=== PATIENT | female | born 1935 | race Caucasian/White ===

== ENCOUNTER 2021-12-03 22:57 | Inpatient (IN) ==
--- NOTE | 2021-12-03 23:22 | Emergency Department Note ---
Impression & Plan Atrial fibrillation, new onset ADMIT ED Provider Note HPI: The patient is a 85-year-old female with history of coronary artery disease, on antiplatelet therapy, who presents the emergency department with chief complaint of a "hot flash" type episode earlier today which also included a headache. Patient states that she feels improved by the time I am assessing her here in the ED tonight. She states that she feels back to her baseline. On my initial assessment the patient is in no acute distress, she is saturating well on room air, denies any current chest pain. Patient is noted to be a poor/limited historian and has limited insight into her past health care, she is otherwise alert and oriented x3. ROS: -Neuro: Presyncopal type episode/hot flash/headache *10 point review systems was conducted and is otherwise negative unless stated above *Outpatient medications and allergy history reviewed PE: General: Alert, NAD HEENT: Normocephalic, atraumatic Eyes: Extraocular eye movement is intact, no scleral erythema Pulmonary: Clear to auscultation bilaterally, no wheezing Cardio: Tachycardic rate with a regular rhythm GI: Abdomen is soft, nontender : No suprapubic tenderness MSK: No evidence of trauma or malformation of the extremities, no edema Skin: No evidence of rash Neuro: Alert, no focal deficits Psychiatric: Cooperative threat monitoring analyst: - An order was placed for continuous cardiac monitoring - Patient was noted to be in irregular rhythm with rate of 110 CT HEAD: Mild central atrophy and periventricular white matter low density consistent with chronic small vessel disease and/or senescent changes. There is no evidence of acute large vessel infarct or intracranial hemorrhage. The paranasal sinuses and mastoid air cells are normal. No skull fracture or scalp hematoma is seen. Radiologist: Abebe Ohara MD CTA CHEST: The pulmonary arterial tree is well-opacified with contrast. No pulmonary embolism is identified. The thoracic aorta is mildly calcified but nondilated. The aorta is not yet well opacified with contrast. Mild cardiomegaly and severe coronary calcification. No pericardial effusion is seen. Mild emphysematous changes in the lungs. There is diffuse intra-or lobular septal thickening suggesting mild CHF with trace bilateral pleural effusions. Mild to severe multilevel degenerative changes are seen in the thoracic spine, greatest inferiorly. No acute fracture or canal compromise is seen. Limited images of the upper abdomen appear unremarkable. Radiologist: Abebe Ohara MD EKG: Rate: 106 Rhythm: Atrial fibrillation with RVR Intervals: Within normal limits ST changes: No ST elevation Time: 2346 Medical Decision Making: Patient presented to the emergency department with a chief complaint of an episode earlier today where she had a headache, states she also had a hot flash and felt some dizziness. On arrival here to the ED she states that she feels well, she does not have any focal deficits. CT imaging of the head was obtained that shows no evidence of any acute intracranial process, CT angiography of the chest was obtained given elevated D-dimer level, this does not show any evidence of pulmonary embolism. Troponin is negative x1, patient otherwise appears well on my reassessment. She is noted to have atrial fibrillation with RVR in the 120s throughout her stay here in the ED, she was given some IV fluids and this did improve into the 90s. She tells me she does not have a history of atrial fibrillation that she knows of. I did discuss the case with her son as well who tells me that she does not have any history of atrial fibrillation. She is on antiplatelet medication, she is not on any anticoagulation. Patient overall appears well however given new onset atrial fibrillation with her episode earlier today I do think it would be appropriate to admit her to a telemetry bed for further management and likely echocardiogram and discussion about an anticoagulation strategy, if necessary. Patient is in agreement. Son is in agreement for admission as well who I spoke with on the phone. Patient was admitted in stable condition following my discussion with the on-call hospitalist for [facility], Dr. Saxena. Diagnosis: 1. New onset atrial fibrillation 2. Presyncopal episode 3. Headache Disposition: Admission Fadi Colon DO Emergency Medicine Past Med/Surg History Social History Smoking Status: Never smoker Allergies Allergies Allergy/AdvReac Type Severity Reaction Status Date / Time tolterodine Allergy Unknown Unknown Verified 12/04/21 00:16 doxazosin AdvReac Intermediate NUMB Verified 12/04/21 00:16 FEELING ropinirole AdvReac Intermediate FELT WEIRD Verified 12/04/21 00:16 Home Meds Home Medications Medication Instructions Recorded Confirmed aspirin 81 mg tablet,delayed 81 mg PO DAILY 12/04/21 12/04/21 release atorvastatin 40 mg tablet 40 mg PO DAILY 12/04/21 12/04/21 calcium carbonate 500 mg-vitamin 1 tab PO DAILY 12/04/21 12/04/21 D3 5 mcg (200 unit) tablet (Os-Aaron 500 + D3) carvedilol 6.25 mg tablet 6.25 mg PO BID 12/04/21 12/04/21 clopidogrel 75 mg tablet (Plavix) 75 mg PO DAILY 12/04/21 12/04/21 fluocinonide 0.05 % topical 1 applic TOPICAL HS PRN 12/04/21 12/04/21 solution latanoprost 0.005 % eye drops 1 drp OPHTHALMIC (EYE) PM 12/04/21 12/04/21 levothyroxine 25 mcg tablet 25 mcg PO DAILYBB 12/04/21 12/04/21 linagliptin 5 mg tablet (Tradjenta) 5 mg PO DAILY 12/04/21 12/04/21 magnesium chloride 64 mg 128 mg PO DAILY 12/04/21 12/04/21 (magnesium chloride) tablet,delayed release metformin 1,000 mg tablet 1,000 mg PO BIDM 12/04/21 12/04/21 mometasone 0.1 % topical cream 1 applic TOPICAL DAILY PRN 12/04/21 12/04/21 [id number] acid 0.4 1 tab PO DAILY 12/04/21 12/04/21 mg-lycopene 300 mcg-lutein 250 mcg tablet (Centrum Silver) nitroglycerin 0.4 mg sublingual 0.4 mg SUBLINGUAL DIRECTED PRN 12/04/21 12/04/21 tablet (Nitrostat) pantoprazole 40 mg tablet,delayed 40 mg PO DAILYBB 12/04/21 12/04/21 release polyethylene glycol 3350 17 17 g PO DAILY PRN 12/04/21 12/04/21 gram/dose oral powder (Miralax) sacubitril 24 mg-valsartan 26 mg 1 tab PO AMHS 12/04/21 12/04/21 tablet (Entresto) vitamins A,C,R-xlal-gzqcfl 7,160 1 tab PO DAILY 12/04/21 12/04/21 unit-113 mg-100 unit tablet (PreserVision AREDS) Results & Data (ED) Vital Signs Vital Signs - 24 hr 12/03/21 23:13 12/03/21 23:30 12/04/21 00:00 Temperature 36.8 C Temperature Source Oral Pulse Rate 92 H 126 H 100 H Pulse Rate from SpO2 Sensor Respiratory Rate 21 20 22 Blood Pressure 183/123 H 157/101 H 134/116 H Blood Pressure Mean 143 119 122 Pulse Oximetry 95 94 93 Oxygen Delivery Method Room Air Room Air Room Air Sepsis Recent Fever Within 48 Hours No Sepsis New/Unexplained Change in Mental Status N/A Sepsis Action Taken by Nursing No Action Required 12/04/21 00:30 12/04/21 01:00 12/04/21 01:30 Temperature Temperature Source Pulse Rate 118 H 98 H 107 H Pulse Rate from SpO2 Sensor Respiratory Rate 18 20 18 Blood Pressure 155/94 H 125/100 122/81 Blood Pressure Mean 114 108 94 Pulse Oximetry 93 92 91 Oxygen Delivery Method Room Air Room Air Room Air Sepsis Recent Fever Within 48 Hours Sepsis New/Unexplained Change in Mental Status Sepsis Action Taken by Nursing 12/04/21 01:58 12/04/21 02:00 12/04/21 02:30 Temperature Temperature Source Pulse Rate 113 H 102 H 98 H Pulse Rate from SpO2 Sensor Respiratory Rate 21 16 17 Blood Pressure 119/98 149/95 H 131/96 Blood Pressure Mean 105 113 107 Pulse Oximetry 96 93 92 Oxygen Delivery Method Room Air Room Air Room Air Sepsis Recent Fever Within 48 Hours Sepsis New/Unexplained Change in Mental Status Sepsis Action Taken by Nursing 12/04/21 03:00 12/04/21 03:30 12/04/21 04:00 Temperature Temperature Source Pulse Rate 97 H 94 H 97 H Pulse Rate from SpO2 Sensor Respiratory Rate 17 17 25 H Blood Pressure 112/96 112/77 142/84 H Blood Pressure Mean 101 88 103 Pulse Oximetry 92 93 92 Oxygen Delivery Method Room Air Room Air Room Air Sepsis Recent Fever Within 48 Hours Sepsis New/Unexplained Change in Mental Status Sepsis Action Taken by Nursing 12/04/21 04:30 12/04/21 05:00 Temperature Temperature Source Pulse Rate 92 H 103 H Pulse Rate from SpO2 Sensor 102 H Respiratory Rate 18 16 Blood Pressure 123/75 155/125 H Blood Pressure Mean 91 135 Pulse Oximetry 94 94 Oxygen Delivery Method Room Air Room Air Sepsis Recent Fever Within 48 Hours Sepsis New/Unexplained Change in Mental Status Sepsis Action Taken by Nursing Laboratory Data Result diagrams: 12/03/21 23:00 12/03/21 23:00 Lab Results 12/03/21 12/03/2112/03/22 Range/Units 23:00 23:00 23:00 WBC 5.76 (4.8-10.8) K/uL RBC 4.55 (4.2-5.4) M/uL Hgb 13.4 (12.0-16.0) g/dL Hct 39.1 (37-47) % MCV 85.9 (80-100) fL MCH 29.5 (25-34) pg MCHC 34.3 (32-36) g/dL RDW Std Deviation 41.6 (36.4-46.3) fL RDW Coeff of Isaak 13.3 (11.5-14.5) % Plt Count 296 (130-400) K/uL MPV 9.8 (7.4-10.4) fL Immature Gran % (Auto) 0.0 % Neut % (Auto) 53.8 % Lymph % (Auto) 35.2 % Camp % (Auto) 7.6 % Eos % (Auto) 3.1 % Baso % (Auto) 0.3 % Neut # (Auto) 3.09 (1.4-6.5) K/uL Lymph # (Auto) 2.03 (1.2-3.4) K/uL Camp # (Auto) 0.44 (0.11-0.59) K/uL Eos # (Auto) 0.18 (0-0.5) K/uL Baso # (Auto) 0.02 (0-0.2) K/uL Immature Gran # (Auto) 0.00 (0.00-0.02) K/uL PT 10.9 (9.0-12.0) Seconds INR 1.1 (0.9-1.1) APTT 25.3 (21.0-31.0) Seconds PTT Ratio 1.0 D-Dimer 1060 H* (0-500) ug/L FEU Sodium 130 L (136-145) mmol/L Potassium 4.2 (3.5-5.1) mmol/L Chloride 95 L (98-107) mmol/L Carbon Dioxide 22 (21-32) mmol/L Anion Gap 13 H (3-11) BUN 12 (6-23) mg/dl Creatinine 0.48 L (0.6-1.2) mg/dl Est Cr Clr Drug Dosing 72.3 ml/min Est GFR ( Amer) 102.2 ml/min Est GFR (Non-Af Amer) 88.2 ml/min BUN/Creatinine Ratio 25.0 H (10-20) Glucose 100 H (70-99(Fasting)) mg/dl Calcium 10.3 H (8.5-10.1) mg/dl Total Bilirubin 0.7 (0.2-1.0) mg/dl AST 25 (13-39) U/L ALT 27 (7-52) U/L Alkaline Phosphatase 73 (34-104) U/L Troponin I < 0.03 (0-0.04) ng/ml Total Protein 7.9 (6.0-8.3) gm/dl Albumin 5.0 (3.4-5.0) gm/dl Globulin 2.9 (2.5-4.0) gm/dl Albumin/Globulin Ratio 1.7 (0.9-2) Lipase 72 (11-82) U/L SARS-CoV-2, RNA, NAAT (NEGATIVE) 12/04/21 Range/Units 04:48 WBC (4.8-10.8) K/uL RBC (4.2-5.4) M/uL Hgb (12.0-16.0) g/dL Hct (37-47) % MCV (80-100) fL MCH (25-34) pg MCHC (32-36) g/dL RDW Std Deviation (36.4-46.3) fL RDW Coeff of Isaak (11.5-14.5) % Plt Count (130-400) K/uL MPV (7.4-10.4) fL Immature Gran % (Auto) % Neut % (Auto) % Lymph % (Auto) % Camp % (Auto) % Eos % (Auto) % Baso % (Auto) % Neut # (Auto) (1.4-6.5) K/uL Lymph # (Auto) (1.2-3.4) K/uL Camp # (Auto) (0.11-0.59) K/uL Eos # (Auto) (0-0.5) K/uL Baso # (Auto) (0-0.2) K/uL Immature Gran # (Auto) (0.00-0.02) K/uL PT (9.0-12.0) Seconds INR (0.9-1.1) APTT (21.0-31.0) Seconds PTT Ratio D-Dimer (0-500) ug/L FEU Sodium (136-145) mmol/L Potassium (3.5-5.1) mmol/L Chloride (98-107) mmol/L Carbon Dioxide (21-32) mmol/L Anion Gap (3-11) BUN (6-23) mg/dl Creatinine (0.6-1.2) mg/dl Est Cr Clr Drug Dosing ml/min Est GFR ( Amer) ml/min Est GFR (Non-Af Amer) ml/min BUN/Creatinine Ratio (10-20) Glucose (70-99(Fasting)) mg/dl Calcium (8.5-10.1) mg/dl Total Bilirubin (0.2-1.0) mg/dl AST (13-39) U/L ALT (7-52) U/L Alkaline Phosphatase (34-104) U/L Troponin I (0-0.04) ng/ml Total Protein (6.0-8.3) gm/dl Albumin (3.4-5.0) gm/dl Globulin (2.5-4.0) gm/dl Albumin/Globulin Ratio (0.9-2) Lipase (11-82) U/L SARS-CoV-2, RNA, NAAT NEGATIVE (NEGATIVE) Administered Medications Discontinued Medications Ioversol (Optiray 320 125ml) 120 ml IV ONCE ONE Stop: 12/04/21 01:54 Last Admin: 12/04/21 01:53 Dose: 120 ml Documented by: [id number] Discharge Plan Visit Data Chief Complaint: Cardiac Assessment Stated Complaint: headache and HTN ED Provider: Fadi Colon Discharge Problem: Atrial fibrillation, new onset Patient Disposition: Admitted As Inpatient Condition: Good
[2021-12-03 23:34] LABS: Basophils # (auto) 0.02 K/uL (0-0.2); Basophils % (auto) 0.3 %; Eosinophils # (auto) 0.18 K/uL (0-0.5); Eosinophils % (auto) 3.1 %; Hematocrit (blood only) 39.1 % (37-47); Hemoglobin 13.4 g/dL (12.0-16.0); Lymphocytes # (auto) 2.03 K/uL (1.2-3.4); Lymphocytes % (auto) 35.2 %; Mean Corpuscular Hemoglobin 29.5 pg (25-34); Mean Corpuscular Hgb Conc 34.3 g/dL (32-36); Mean Corpuscular Volume 85.9 fL (80-100); Mean Platelet Volume 9.8 fL (7.4-10.4); Monocytes # (auto) 0.44 K/uL (0.11-0.59); Monocytes % (auto) 7.6 %; Neutrophils # (auto) 3.09 K/uL (1.4-6.5); Neutrophils % (auto) 53.8 %; Platelet Count 296 K/uL (130-400); RDW Coefficient of Variation 13.3 % (11.5-14.5); RDW Standard Deviation 41.6 fL (36.4-46.3); Red Blood Count 4.55 M/uL (4.2-5.4); White Blood Count 5.76 K/uL (4.8-10.8)
[2021-12-03 23:59] LABS: Troponin I < 0.03 ng/ml (0-0.04)
[2021-12-04 00:03] LABS: Alanine Aminotransferase 27 U/L (7-52); Albumin Globulin Ratio 1.7 (0.9-2); Alkaline Phosphatase 73 U/L (34-104); Anion Gap 13 (3-11); Aspartate Aminotransferase 25 U/L (13-39); Bilirubin,Total 0.7 mg/dl (0.2-1.0); Blood Urea Nitrogen 12 mg/dl (6-23); Calcium 10.3 mg/dl (8.5-10.1); Carbon Dioxide 22 mmol/L (21-32); Chloride 95 mmol/L (98-107); Creatinine Clr Calc Pharmacy 72.3 ml/min; Est GFR (African American) 102.2 ml/min; Est GFR (Non-African American) 88.2 ml/min; Globulin 2.9 gm/dl (2.5-4.0); Glucose 100 mg/dl (70-99(Fasting)); Lipase 72 U/L (11-82); Potassium 4.2 mmol/L (3.5-5.1); Sodium 130 mmol/L (136-145); Total Protein 7.9 gm/dl (6.0-8.3)
[2021-12-04 00:45] LABS: INR 1.1 (0.9-1.1); Partial Thromboplastin Time 25.3 Seconds (21.0-31.0); Prothrombin Time 10.9 Seconds (9.0-12.0)
[2021-12-04 00:49] LABS: D Dimer 1060 ug/L FEU (0-500)
[2021-12-04] MEDS ORDERED: OPTIRAY 320 125ml IV ONE (01:53)
[2021-12-04] MEDS ORDERED: Heparin IV Adult Wt-Based Low-Dose *NO* Bolus Protocol IV ONE (06:18)
[2021-12-04] MEDS ORDERED: ONDANSETRON INJ 2 MG/ML 2 ML VIAL IV PRN (06:18)
[2021-12-04] MEDS ORDERED: SODIUM CHLORIDE 0.9% 1000ML 1,000 ML IV SCH (06:18)
[2021-12-04] MEDS ORDERED: METOPROLOL TARTRATE 1 MG/ML VIAL IV PRN (06:18)
[2021-12-04] MEDS ORDERED: POLYETHYLENE (MIRALAX) 17 GM PACK PO PRN ×2 (06:18)
[2021-12-04] MEDS ORDERED: MOMETASONE FUROATE 0.1% CR 15 GM TUBE EXT PRN (06:18)
[2021-12-04] MEDS ORDERED: NON-FORMULARY MEDICATION (Fluocinonide 0.05 % Solution) TOP PRN (06:18)
[2021-12-04] MEDS ORDERED: NITROGLYCERIN SL 0.4 MG/TAB TAB SL PRN ×2 (06:18)
[2021-12-04] MEDS ORDERED: DEXTROSE 50% 50 ML SYRINGE IV PRN (06:30)
[2021-12-04] MEDS ORDERED: GLUCAGON FOR INJ 1 MG VIAL IM PRN (06:30)
[2021-12-04] MEDS ORDERED: GLUCOSE 40% GEL 15 GM TUBE PO PRN (06:30)
[2021-12-04] MEDS ORDERED: CARBOHYDRATES FOR HYPOGLYCEMIA PO PRN (06:30)
[2021-12-04] MEDS ORDERED: GLUCOSE 10 TABS/TUBE PO PRN (06:30)
--- NOTE | 2021-12-04 06:56 | CT Scan Report ---
CT OF THE HEAD WITHOUT CONTRAST CLINICAL HISTORY: Headache. COMPARISON STUDY: No previous studies for comparison. CT DOSE: 537.48 mGy.cm TECHNIQUE: Helical axial images of the head were obtained without IV contrast. Automated exposure con trol was utilized for the study. A dose lowering technique was utilized adhering to the principles o f ALARA. FINDINGS: No acute intracranial hemorrhage, midline shift or mass effect is present. White matter hyp odensity suggests small vessel disease. The ventricular system is unremarkable. The basal cisterns ar e patent. No extra-axial collections are present. There are no findings to suggest acute dural sinus thrombosis or acute territorial infarct. No significant calvarial abnormalities are present. Visualiz ed portions of the sinuses and mastoid air cells are clear. IMPRESSION: No acute intracranial findings. ACT 112: Negative or not required by law. Electronically signed by: Stephen Reece M.D. 12/04/2021 6:54 AM
--- NOTE | 2021-12-04 07:21 | CT Scan Report ---
CT ANGIOGRAPHY OF THE CHEST, PULMONARY EMBOLUS PROTOCOL CLINICAL HISTORY: Shortness of breath. Tachycardia. Evaluate for pulmonary embolus. COMPARISON STUDY: Chest radiograph December 03, 2021. TECHNIQUE: Following IV administration of 120 mL of Optiray, helical axial images of the chest were o btained utilizing the pulmonary embolus protocol. Maximal intensity projections and sagittal and cor onal reformats were viewed on an independent 3D workstation. IV contrast was administered without co mplication. Automated exposure control was utilized for the study. A dose lowering technique was ut ilized adhering to the principles of ALARA. CT DOSE: 225.75 mGy.cm FINDINGS: No pulmonary emboli are identified. Mild cardiomegaly is noted. There is no pericardial ef fusion. Moderate coronary artery calcification is present. Stimulator device within the lower back is partially imaged. There are trace bilateral pleural effusions. No pneumothorax is present. There is no consolidation to suggest pneumonia. Interlobular septal thickening is noted. No thoracic lymphaden opathy is present. No acute fracture or suspicious lesion is identified within visualized bony thorax . There is moderate plaque of the thoracic aorta. IMPRESSION: 1. No pulmonary emboli identified. 2. Mild cardiomegaly. Findings consistent with interstitial pulmonary edema with trace bilateral pleu ral effusions. ACT 112: Negative or not required by law. Electronically signed by: Stephen Reece M.D. 12/04/2021 7:20 AM
--- NOTE | 2021-12-04 07:50 | XRay Report ---
XR chest 1V portable CLINICAL HISTORY: weak COMPARISON STUDY: No previous studies for comparison. FINDINGS: Lung volumes are normal. There is no pneumothorax or pleural effusion. Postoperative findin gs within the lumbar spine are partially imaged. Electronic device projects over the mid to lower danial k. There is mild interstitial thickening. Trace bilateral pleural effusions are present. There is no pneumothorax. There is mild cardiomegaly. No consolidation is identified. IMPRESSION: Findings suggestive of mild interstitial pulmonary edema with trace bilateral pleural ef fusions. ACT 112: Negative or not required by law. Electronically signed by: Stephen Reece M.D. 12/04/2021 7:49 AM
[2021-12-04] MEDS: PANTOprazole 40 MG TAB PO SCH (08:14)
--- NOTE | 2021-12-04 08:15 | Cardiology Consultation ---
Date of Consultation December 04, 2021 Assessment & Plan (1) Atrial fibrillation, new onset: Newly Dx afib with RVR- patient asymptomatic. HRs in the 100s. Due to lack of symptoms will attempt medical management/rate control at this time. Further recommendations pending echo results. 1. Stop Coreg 6.25 mg BID 2. Start Metoprolol tartrate 50 mg BID 3. For now- okay to continue heparin infusion. Use of chronic anticoagulation will be determined after further assessment. Patient may be a poor candidate due to age and fall risk. 4. Okay for patient to eat- diet order placed. 5. Echo ordered to reassess LVEF and valvular status. (2) Hypertension: Goal blood pressures of 150/90. Continue to trend blood pressures closely- should BP start to trend consistently above goal can consider titration of antihypertensives at that time. 1. Remain on Entresto 26/24 mg (3) CAD (coronary artery disease): (4) Ischemic cardiomyopathy: (5) HFrEF (heart failure with reduced ejection fraction): Ho anterior wall myocardial infarction and received a drug eluting stent within the LAD at [facility], 01/2020 H/o Ischemic cardiomyopathy, HFrEF, NYHA class 3. Stable- no angina. Euvolemic on exam. 1. Patient on Aspirin 81 mg daily Supervising Physician Co-Signing Physician Notes I have seen and examined the patient. I reviewed the medical record and discussed the case with Ms. oD. I agree with the plan as outlined above. History of Present Illness Reason for Consultation: New onset atrial fibrillation, presyncope [facility] Attending Physician: Alonzo Francis MD History of Present Illness 85 year old female who normally follows with Dr. Monk as an out patient. She presented to ED due to "hot flash" episodes/ presyncope at home. Patient found to be in atrial fib with RVR in the 110-120s. This is a new diagnosis for her. She has never been on anticoagulation, only on Aspirin 81 mg daily. She was given IVF with improvement in her rates. CT imaging of the head was obtained that shows no evidence of any acute intracranial process, CT angiography of the chest was obtained given elevated D-dimer level, this does not show any evidence of pulmonary embolism. Troponin is negative x1. Upon entrance into the room patient was resting comfortably in bed. Asymptomatic with her atrial fibrillation. No chest pain or shortness of breath. No palpitations, dizziness or syncope. Notes that she lives at home alone and independently. Unfortunately she has been much more unsteady on her feet. She did have a fall in September, but did not get hurt. She notes that she needs her rollator to walk. Tele: Afib 90s, she is currently on a heparin gtt. PMH: Hypertensive heart disease CAD, h/o anterior wall myocardial infarction and received a drug eluting stent within the LAD at [facility], 01/2020 H/o Ischemic cardiomyopathy, HFrEF, NYHA class 3 Palpitations DM Allergies Allergy/AdvReac Type Severity Reaction Status Date / Time oxybutynin Allergy Unknown SEVERE Unverified 12/04/21 07:15 ACID REFLUX tolterodine Allergy Unknown Unknown Verified 12/04/21 07:15 doxazosin AdvReac Intermediate NUMB Verified 12/04/21 07:15 FEELING ropinirole AdvReac Intermediate FELT WEIRD Verified 12/04/21 07:15 ANTICHOLINERGIC Allergy Unknown SEVERE Uncoded 12/04/21 07:15 ACID REFLUX Home Medications Medication Instructions Recorded Confirmed Type aspirin 81 mg tablet,delayed 81 mg PO DAILY 12/04/21 12/04/21 History release atorvastatin 40 mg tablet 40 mg PO DAILY 12/04/21 12/04/21 History calcium carbonate 500 mg-vitamin 1 tab PO DAILY 12/04/21 12/04/21 History D3 5 mcg (200 unit) tablet (Os-Aaron 500 + D3) carvedilol 6.25 mg tablet 6.25 mg PO BID 12/04/21 12/04/21 History clopidogrel 75 mg tablet (Plavix) 75 mg PO DAILY 12/04/21 12/04/21 History fluocinonide 0.05 % topical 1 applic TOPICAL HS PRN 12/04/21 12/04/21 History solution latanoprost 0.005 % eye drops 1 drp OPHTHALMIC (EYE) PM 12/04/21 12/04/21 History levothyroxine 25 mcg tablet 25 mcg PO DAILYBB 12/04/21 12/04/21 History linagliptin 5 mg tablet (Tradjenta) 5 mg PO DAILY 12/04/21 12/04/21 History magnesium chloride 64 mg 128 mg PO DAILY 12/04/21 12/04/21 History (magnesium chloride) tablet,delayed release metformin 1,000 mg tablet 1,000 mg PO BIDM 12/04/21 12/04/21 History mometasone 0.1 % topical cream 1 applic TOPICAL DAILY PRN 12/04/21 12/04/21 History aqzuqhzs-sem-frvfx acid 0.4 1 tab PO DAILY 12/04/21 12/04/21 History mg-lycopene 300 mcg-lutein 250 mcg tablet (Centrum Silver) nitroglycerin 0.4 mg sublingual 0.4 mg SUBLINGUAL DIRECTED PRN 12/04/21 12/04/21 History tablet (Nitrostat) pantoprazole 40 mg tablet,delayed 40 mg PO DAILYBB 12/04/21 12/04/21 History release polyethylene glycol 3350 17 17 g PO DAILY PRN 12/04/21 12/04/21 History gram/dose oral powder (Miralax) sacubitril 24 mg-valsartan 26 mg 1 tab PO AMHS 12/04/21 12/04/21 History tablet (Entresto) vitamins A,C,Q-ouzg-qvgjgy 7,160 1 tab PO DAILY 12/04/21 12/04/21 History unit-113 mg-100 unit tablet (PreserVision AREDS) Patient History Social History Smoking Status: Never smoker Second Hand Exposure: No; Do You Dip or Chew Tobacco: No; Tobacco Cessation Education Requested by Patient: No Hx Alcohol Use: No Hx Substance Use: No Preferred Language: Arabic Communication Ability: Effective [employer] Required: No Beliefs That Will Affect Care: None marital status: / Current Living Situation: Alone Other Information That Helps Us Care for You: No Feels Safe at Home: Yes Safety Concerns: Feels Safe At This Time Assistive Devices: Walker Review of Systems Review of Systems: All systems reviewed & are unremarkable except as noted in HPI & below Physical Exam Physical Exam: General: no acute distress and stated age Head: normocephalic, no masses, lesions, tenderness or abnormalities Eyes: conjunctiva are pink and non-injected, sclera clear Neck: supple, no adenopathy, no bruits, normal jugular venous pulse, no hepatojugular reflux Chest: normal shape and normal respiratory effort Lungs: clear to auscultation and percussion Cardiac Exam: Irregular rhythm, no murmurs gallops or rubs - normal S1, normal S2 Pulses: 2(+) throughout Abdomen: abdomen soft, non-tender, no abnormal masses and no hepatosplenomegaly Musculoskeletal: no gait disturbance, no joint inflammation, no deforming arthritis Extremities: no edema and no cyanosis Neuro: grossly normal exam Results & Data ([facility]) Vital Signs (Past 12 Hours) Vital Signs Temp Pulse Resp BP Pulse Ox 12/04/21 07:15 36.5 C 101 H 18 134/92 94 12/04/21 06:00 76 18 148/71 H 93 12/04/21 05:31 77 17 138/87 94 12/04/21 05:00 103 H 16 155/125 H 94 12/04/21 04:30 92 H 18 123/75 94 12/04/21 04:00 97 H 25 H 142/84 H 92 12/04/21 03:30 94 H 17 112/77 93 12/04/21 03:00 97 H 17 112/96 92 12/04/21 02:30 98 H 17 131/96 92 12/04/21 02:00 102 H 16 149/95 H 93 12/04/21 01:58 113 H 21 119/98 96 12/04/21 01:30 107 H 18 122/81 91 12/04/21 01:00 98 H 20 125/100 92 12/04/21 00:30 118 H 18 155/94 H 93 12/04/21 00:00 100 H 22 134/116 H 93 12/03/21 23:30 126 H 20 157/101 H 94 12/03/21 23:13 36.8 C 92 H 21 183/123 H 95 Laboratory Results 12/04/21 12/04/21 12/04/21 Range/Units 08:36 07:07 04:48 WBC (4.8-10.8) K/uL RBC (4.2-5.4) M/uL Hgb (12.0-16.0) g/dL Hct (37-47) % MCV (80-100) fL MCH (25-34) pg MCHC (32-36) g/dL RDW Std Deviation (36.4-46.3) fL RDW Coeff of Isaak (11.5-14.5) % Plt Count (130-400) K/uL MPV (7.4-10.4) fL Immature Gran % (Auto) % Neut % (Auto) % Lymph % (Auto) % Dickenson % (Auto) % Eos % (Auto) % Baso % (Auto) % Neut # (Auto) (1.4-6.5) K/uL Lymph # (Auto) (1.2-3.4) K/uL Dickenson # (Auto) (0.11-0.59) K/uL Eos # (Auto) (0-0.5) K/uL Baso # (Auto) (0-0.2) K/uL Immature Gran # (Auto) (0.00-0.02) K/uL PT (9.0-12.0) Seconds INR (0.9-1.1) APTT (21.0-31.0) Seconds PTT Ratio D-Dimer (0-500) ug/L FEU Sodium (136-145) mmol/L Potassium (3.5-5.1) mmol/L Chloride (98-107) mmol/L Carbon Dioxide (21-32) mmol/L Anion Gap (3-11) BUN (6-23) mg/dl Creatinine (0.6-1.2) mg/dl Est Cr Clr Drug Dosing ml/min Est GFR ( Amer) ml/min Est GFR (Non-Af Amer) ml/min BUN/Creatinine Ratio (10-20) Glucose (70-99(Fasting)) mg/dl POC Glucose 118 H (70-99) mg/dl Calcium (8.5-10.1) mg/dl Total Bilirubin (0.2-1.0) mg/dl AST (13-39) U/L ALT (7-52) U/L Alkaline Phosphatase (34-104) U/L Troponin I < 0.03 (0-0.04) ng/ml Total Protein (6.0-8.3) gm/dl Albumin (3.4-5.0) gm/dl Globulin (2.5-4.0) gm/dl Albumin/Globulin Ratio (0.9-2) Lipase (11-82) U/L SARS-CoV-2, RNA, NAAT NEGATIVE (NEGATIVE) 12/03/21 12/03/21 12/03/21 Range/Units 23:00 23:00 23:00 WBC 5.76 (4.8-10.8) K/uL RBC 4.55 (4.2-5.4) M/uL Hgb 13.4 (12.0-16.0) g/dL Hct 39.1 (37-47) % MCV 85.9 (80-100) fL MCH 29.5 (25-34) pg MCHC 34.3 (32-36) g/dL RDW Std Deviation 41.6 (36.4-46.3) fL RDW Coeff of Isaak 13.3 (11.5-14.5) % Plt Count 296 (130-400) K/uL MPV 9.8 (7.4-10.4) fL Immature Gran % (Auto) 0.0 % Neut % (Auto) 53.8 % Lymph % (Auto) 35.2 % Dickenson % (Auto) 7.6 % Eos % (Auto) 3.1 % Baso % (Auto) 0.3 % Neut # (Auto) 3.09 (1.4-6.5) K/uL Lymph # (Auto) 2.03 (1.2-3.4) K/uL Dickenson # (Auto) 0.44 (0.11-0.59) K/uL Eos # (Auto) 0.18 (0-0.5) K/uL Baso # (Auto) 0.02 (0-0.2) K/uL Immature Gran # (Auto) 0.00 (0.00-0.02) K/uL PT 10.9 (9.0-12.0) Seconds INR 1.1 (0.9-1.1) APTT 25.3 (21.0-31.0) Seconds PTT Ratio 1.0 D-Dimer 1060 H* (0-500) ug/L FEU Sodium 130 L (136-145) mmol/L Potassium 4.2 (3.5-5.1) mmol/L Chloride 95 L (98-107) mmol/L Carbon Dioxide 22 (21-32) mmol/L Anion Gap 13 H (3-11) BUN 12 (6-23) mg/dl Creatinine 0.48 L (0.6-1.2) mg/dl Est Cr Clr Drug Dosing 72.3 ml/min Est GFR ( Amer) 102.2 ml/min Est GFR (Non-Af Amer) 88.2 ml/min BUN/Creatinine Ratio 25.0 H (10-20) Glucose 100 H (70-99(Fasting)) mg/dl POC Glucose (70-99) mg/dl Calcium 10.3 H (8.5-10.1) mg/dl Total Bilirubin 0.7 (0.2-1.0) mg/dl AST 25 (13-39) U/L ALT 27 (7-52) U/L Alkaline Phosphatase 73 (34-104) U/L Troponin I < 0.03 (0-0.04) ng/ml Total Protein 7.9 (6.0-8.3) gm/dl Albumin 5.0 (3.4-5.0) gm/dl Globulin 2.9 (2.5-4.0) gm/dl Albumin/Globulin Ratio 1.7 (0.9-2) Lipase 72 (11-82) U/L SARS-CoV-2, RNA, NAAT (NEGATIVE) Diagnostic Findings Echo 06/2020 outpatient The primary indication after review was deemed appropriate and the examination was performed. The examination is adequate to evaluate the referral indication. The left ventricular cavity size is normal. The basal septum is thickened and angulated consistent with sigmoid septum. The LV wall thickness is normal. The left ventricular wall motion is normal. Calculated LV ejection Fraction = 59% (bi-plane method of discs). The left ventricular diastolic function is normal. The left atrium is mildly enlarged (35-41 ml/m^2). Mild mitral regurgitation is present. The estimated pulmonary artery systolic pressure is 25-30mm Hg. Echo at [facility] 01/2020 LVEF 15-20%- post NE
[2021-12-04] MEDS: LEVOTHYROXINE SODIUM 25 MCG TABLET PO SCH (08:26)
[2021-12-04] MEDS: INSULIN ASPART PER UNIT SC SCH ×4 (08:53→23:59)
[2021-12-04] MEDS ORDERED: carvediloL 6.25 MG TAB PO SCH (09:00)
[2021-12-04] MEDS: ATORVASTATIN 40 MG TAB PO SCH (09:00)
[2021-12-04] MEDS: ASPIRIN 81 MG ECTAB PO SCH (09:00)
[2021-12-04] MEDS ORDERED: NON-FORMULARY MEDICATION (Vitamins A,C,E-Zinc-Copper [Preservision Areds] 7,160 unit- 113 PO SCH (09:00)
[2021-12-04] MEDS: HEPARIN SODIUM/DEXTROSE 25,000 UNITS/500 ML BAG IV SCH (09:01)
[2021-12-04] MEDS: CLOPIDOGREL BISULFATE 75 MG TAB PO SCH (09:01)
[2021-12-04] MEDS: VALSARTAN/SACUBITRIL 26/24MG TAB PO SCH ×2 (09:01→21:12)
[2021-12-04] MEDS: CALCIUM 600MG + VIT D 400 IU TAB PO SCH (09:01)
[2021-12-04] MEDS: MAGNESIUM CHLORIDE 64MG DELAYED REL TAB PO SCH (09:01)
[2021-12-04] MEDS: CEROVITE ADV FORMULA TAB PO SCH (09:01)
--- NOTE | 2021-12-04 09:14 | History and Physical Report ---
DATE OF ADMISSION: 12/04/2021. CHIEF COMPLAINT: Elevated blood pressure, not feeling well. 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 She says her four sons, lives in [place]. Last night after dinner, she felt funny, not feeling well and felt her blood pressure was going high that is the reason she came here and found to be in new onset atrial fibrillation. The patient is currently is hemodynamically stable. Denies any chest pain, no shortness of breath, no nausea, no abdominal pain. Normal bowel and bladder movements. Denies black stools, no hematuria, no headache, vision is okay.Once in the while she has sore throat.Once in a while has cough. Currently, no sore throat. Appetite is okay. Swallows okay. Hemodynamically stable. ALLERGIES: DOXAZOSIN, ROPINIROLE, TOLTERODINE. PAST MEDICAL HISTORY: As mentioned above. PAST SURGICAL HISTORY: Biopsy of the external ear, bunion correction surgery, colonoscopy, cardiac catheterization, EGD with endoscopic ultrasound, hemorrhoidectomy, tonsillectomy, adenoidectomy, sacroiliac joint injection, lumbar spinal fusion surgery, total abdominal hysterectomy with removal of tubes. MEDICATIONS: The patient is on aspirin 81 mg p.o. daily, atorvastatin 40 mg p.o. daily, Os-Aaron 500 plus D 1 tablet p.o. daily, Coreg 6.25 mg p.o. b.i.d., Plavix 75 mg p.o. daily, fluocinonide topical at bedtime p.r.n., latanoprost ophthalmic drops by PM, levothyroxine 25 mcg p.o. daily, Tradjenta 5 mg p.o. daily, magnesium chloride 128 mg p.o. daily, metformin 1000 mg p.o. b.i.d., Centrum Silver 1 tablet p.o. daily, Nitrostat 0.4 mg sublingual p.r.n., Protonix 40 mg p.o. daily, MiraLax 17 g p.o. daily p.r.n., Entresto 1 tablet p.o. a.m. and bedtime, PreserVision AREDS 1 tablet p.o. daily. FAMILY HISTORY: Significant for brother had esophageal cancer, diabetes, stroke; father had heart disorder; mother had diabetes, sister has diabetes. SOCIAL HISTORY: Currently lives alone. No smoking, alcohol, no drug use. REVIEW OF SYSTEMS: As per HPI. Rest of the review of systems is negative. PHYSICAL EXAMINATION: GENERAL: The patient is old and frail, not in acute distress. VITAL SIGNS: Temperature 36.8, pulse 103, respiratory rate 16, blood pressure 119/98, oxygen 94% on room air. HEENT: Pupils equal, round and reactive to light. Oral mucosa moist. NECK: No JVD. No neck masses. CARDIOVASCULAR: S1 and S2 heard. Regular rate and rhythm. No murmur, no gallop. RESPIRATORY SYSTEM: Normal AP diameter. No accessory muscle use. No wheezing, no crackles. ABDOMEN: Soft, bowel sounds present, nontender, no distention. CENTRAL NERVOUS SYSTEM: Cranial nerves II-XII grossly intact, nonfocal. EXTREMITIES: Trace pedal edema, no erythema seen. LABORATORY DATA: WBC 5.7, hemoglobin 13.4, hematocrit 39.1, platelets 296. PT 10.9, INR 1.1. D-dimer 1060. Sodium 130, potassium 4.2, chloride 95, CO2 22, BUN 12, creatinine 0.4, serum glucose 100, calcium 10.3, total bilirubin 0.7, AST 25, ALT 27, alkaline phosphatase 72. Troponin I less than 0.03, lipase 72. IMAGING DATA: CT of the head, preliminary report, no acute findings. CTA of the chest, preliminary report, no pulmonary embolism was identified. No pericardial effusion is seen. Possible mild congestive heart failure. EKG: Shows AFib at a rate of 106, no acute ST changes seen. ASSESSMENT AND PLAN: This 85-year-old female presents with funny feeling at home and found to have new onset atrial fibrillation. 1. New onset atrial fibrillation, rates are controlled. We will place on IV Lopressor p.r.n. Continue Coreg and placed her on IV heparin low dose, echo, follow serial enzymes, consult Cardiology in the a.m. for further recommendations. Keep her n.p.o. until seen by Cardiology. Further anticoagulation as per Cardiology. The patient could be probably fall risk. 2. History of chronic systolic congestive heart failure, EF of 59% on echocardiogram done in 06/2020. Patient is on Entresto, Coreg. We will monitor for any volume overload. 3. History of hyperlipidemia: Continue statin. 4. History of coronary artery disease, status post stent, on aspirin, statin, and beta clotilde and Plavix. 5. History of diabetes: Hold metformin and Tradjenta , insulin sliding scale, follow the blood sugars, follow HbA1c level. 6. History of hypothyroidism: Continue Synthroid. 7. Gastroesophageal reflux disease: Continue Protonix. 8. Deep venous thrombosis prophylaxis: On low-dose IV heparin. DISPOSITION: Closely monitor in tele floor. Level 1 full code. Expect to discharge home and follow up with family doctor. Level 1 full code. Job ID: [id number] MTDD
[2021-12-04 16:14] LABS: Partial Thromboplastin Ratio 1.3
[2021-12-04] MEDS ORDERED: HEPARIN SOD (PORCINE) 1000 UNIT/ML ONE (16:20)
--- NOTE | 2021-12-04 19:09 | Hospitalist Progress Note ---
Date of Service December 04, 2021 Assessment & Plan (1) Atrial fibrillation, new onset: Plan: Patient is an 85 yr female presents with funny feeling at home and found to have new onset atrial fibrillation. New onset atrial fibrillation Asymptomatic Coreg discontinued Start on metoprolol 50 mg twice daily Continue IV heparin for now Likely not a candidate for long-term anticoagulation Appreciate cardiology input IV lopressor PRN H/O Chronic systolic congestive heart failure Monitor volume status Continue Entresto Hyperlipidemia: Continue statin. CAD S/P stent on aspirin, statin, and beta clotilde, Plavix DM II Hold metformin and Tradjenta Insulin sliding scale Monitor BGs Date HbA1c Hypothyroidism: Continue levothyroxine Check TSH GERD Continue Protonix DVT Px: IV heparin. CODE STATUS Full code Admission and Anticipated Discharge Date Admission Date: December 04, 2021 Subjective Patient is seen and examined at bedside States feeling much better today Offers no complaints Denies any chest pain, palpitations, dizziness, nausea, abdominal pain Offers no other complaints Review of Systems Review of Systems: All systems reviewed & are unremarkable except as noted in Subjective Physical Exam Physical Exam: Physical Exam: Vitals signs as noted above General Appearance:Thin, elderly, no apparent distress Head: normocephalic, Atraumatic Eyes: normal inspection, EOMI Neck: supple, Trachea midline Respiratory/Chest: Normal breath sounds, minimal basal crackles, No accessory muscle use Cardiovascular: Irregularly irregular, No murmur Abdomen/GI:Soft, Non tender, Bowel sounds present Extremities/Musculoskeletal:normal inspection, no edema Neurologic/Psych:AAOX3, grossly no focal neurological deficits Skin: normal color, warm Results & Data Results & Data ([facility]) Vital Signs (Past 12 Hours) Vital Signs Temp Pulse Pulse Resp BP BP Pulse Ox 12/04/21 18:15 104 H 16 95 12/04/21 16:25 78 16 146/92 H 95 12/04/21 15:11 81 16 138/100 95 12/04/21 11:44 132/78 12/04/21 11:01 107 H 20 12/04/21 09:00 104 H 22 154/94 H 97 12/04/21 07:15 36.5 C 101 H 18 134/92 94 Laboratory Results Short CBC 12/03/21 Range/Units 23:00 WBC 5.76 (4.8-10.8) K/uL Hgb 13.4 (12.0-16.0) g/dL Hct 39.1 (37-47) % Plt Count 296 (130-400) K/uL BMP 12/03/21 23:00 Sodium 130 L Potassium 4.2 Chloride 95 L Carbon Dioxide 22 BUN 12 Creatinine 0.48 L Glucose 100 H Calcium 10.3 H Cardiac Enzymes 12/03/21 12/04/21 12/04/21 Range/Units 23:00 07:07 12:45 Troponin I < 0.03 < 0.03 < 0.03 (0-0.04) ng/ml Liver Function 12/03/21 Range/Units 23:00 Total Bilirubin 0.7 (0.2-1.0) mg/dl AST 25 (13-39) U/L ALT 27 (7-52) U/L Alkaline Phosphatase 73 (34-104) U/L Albumin 5.0 (3.4-5.0) gm/dl
[2021-12-04] MEDS: LATANOPROST 0.005% OP SOLN 2.5 ML BTL OP SCH (21:12)
[2021-12-04] MEDS: METOPROLOL TARTRATE 50 MG TAB PO SCH (21:12)
[2021-12-04 23:50] LABS: Partial Thromboplastin Time 51.8 Seconds (21.0-31.0)
[2021-12-05 04:39] LABS: Basophils # (auto) 0.03 K/uL (0-0.2); Basophils % (auto) 0.6 %; Eosinophils # (auto) 0.22 K/uL (0-0.5); Eosinophils % (auto) 4.7 %; Hematocrit (blood only) 36.7 % (37-47); Hemoglobin 12.6 g/dL (12.0-16.0); Lymphocytes # (auto) 1.51 K/uL (1.2-3.4); Lymphocytes % (auto) 32.5 %; Mean Corpuscular Hemoglobin 29.4 pg (25-34); Mean Corpuscular Hgb Conc 34.3 g/dL (32-36); Mean Corpuscular Volume 85.7 fL (80-100); Mean Platelet Volume 9.3 fL (7.4-10.4); Monocytes % (auto) 8.6 %; Neutrophils # (auto) 2.49 K/uL (1.4-6.5); Neutrophils % (auto) 53.6 %; Platelet Count 243 K/uL (130-400); RDW Coefficient of Variation 13.3 % (11.5-14.5); Red Blood Count 4.28 M/uL (4.2-5.4); White Blood Count 4.65 K/uL (4.8-10.8)
[2021-12-05 04:59] LABS: Creatinine Clr Calc Pharmacy 63.1 ml/min; Est GFR (African American) 97.7 ml/min; Est GFR (Non-African American) 84.3 ml/min; Magnesium 1.4 mg/dl (1.7-2.4); Potassium 3.9 mmol/L (3.5-5.1)
[2021-12-05] MEDS: INSULIN ASPART PER UNIT SC SCH ×5 (05:19→20:45)
[2021-12-05 05:26] LABS: Thyroid Stimulating Hormone 4.599 uIu/ml (0.300-4.500)
[2021-12-05] MEDS ORDERED: Nursing to Pharmacy Communication SCH (05:30)
[2021-12-05] MEDS: LEVOTHYROXINE SODIUM 25 MCG TABLET PO SCH (05:32)
[2021-12-05] MEDS: PANTOprazole 40 MG TAB PO SCH (05:32)
[2021-12-05 05:58] LABS: T4 Free Thyroxine 1.09 ng/dl (0.61-1.60)
[2021-12-05 06:05] LABS: Partial Thromboplastin Ratio 1.9
[2021-12-05 06:15] LABS: Partial Thromboplastin Time 48.9 Seconds (21.0-31.0)
--- NOTE | 2021-12-05 06:36 | Electrocardiogram Report ---
Test Reason : Blood Pressure : / mmHG Vent. Rate : 106 BPM Atrial Rate : 080 BPM P-R Int : 000 ms QRS Dur : 082 ms QT Int : 338 ms P-R-T Axes : 000 005 071 degrees QTc Int : 448 ms Atrial fibrillation with rapid ventricular response Septal infarct (cited on or before 28-MAR-2003) Abnormal ECG When compared with ECG of 28-MAR-2003 10:46, Atrial fibrillation has replaced Sinus rhythm Vent. rate has increased BY 54 BPM Nonspecific T wave abnormality now evident in Lateral leads QT has lengthened Confirmed by Chevy Fine ([id number]) on 12/05/2021 6:36:05 AM Referred By: REFERRED SELF Confirmed By:Chevy Fine
--- NOTE | 2021-12-05 06:42 | Electrocardiogram Report ---
Test Reason : Blood Pressure : / mmHG Vent. Rate : 080 BPM Atrial Rate : 069 BPM P-R Int : 000 ms QRS Dur : 074 ms QT Int : 352 ms P-R-T Axes : 000 060 086 degrees QTc Int : 405 ms Atrial fibrillation Low voltage QRS Septal infarct (cited on or before 28-MAR-2003) Abnormal ECG When compared with ECG of 03-DEC-2021 23:47, No significant change was found Confirmed by Chevy Fine ([id number] on 12/05/2021 6:41:33 AM Referred By: REFERRED SELF Confirmed By:Chevy Fine
--- NOTE | 2021-12-05 07:53 | Cardiology Progress Note ---
Date of Service December 05, 2021 Assessment & Plan (1) Atrial fibrillation, new onset: Plan: Newly Dx afib with RVR- patient asymptomatic. HRs in the 80s-90s. Due to lack of symptoms will attempt medical management/rate control at this time. Further recommendations pending echo results. 1. Continue Metoprolol tartrate 50 mg BID 2. For now- okay to continue heparin infusion. Use of chronic anticoagulation will be determined after further assessment. Patient may be a poor candidate due to age and fall risk. 3. PT/OT ordered to evaluate for needs. 4. Echo ordered to reassess LVEF and valvular status- results pending Admission and Anticipated Discharge Date Admission Date: December 04, 2021 Supervising Physician Co-Signing Physician Notes I have seen and examined the patient. I reviewed the medical record and discussed the case with the SENIOR MARKETING SPECIALIST. Patient seems to be doing better today. I agree with the plan as outlined. Echocardiogram is still pending. Subjective 85 year old with newly dx atrial fibrillation. Asymptomatic- Coreg was dc'd yesterday in favor of metoprolol tartrate 50 mg BID. Upon entrance into the room patient was resting comfortably in bed. Asymptomatic with her atrial fibrillation. No chest pain or shortness of breath. No palpitations, dizziness or syncope. Patient has been up and ambulating to the bathroom with assistance. She lives at home alone and independently. Unfortunately she has been much more unsteady on her feet. She did have a fall in September, but did not get hurt. She notes that she needs her rollator to walk. Tele: Afib 80s, she is currently on a heparin gtt. Review of Systems Review of Systems: All systems reviewed & are unremarkable except as noted in HPI & below Physical Exam Physical Exam: General: no acute distress and stated age Head: normocephalic, no masses, lesions, tenderness or abnormalities Eyes: conjunctiva are pink and non-injected, sclera clear Neck: supple, no adenopathy, no bruits, normal jugular venous pulse, no hepatojugular reflux Chest: normal shape and normal respiratory effort Lungs: clear to auscultation and percussion Cardiac Exam: Irregular rhythm, no murmurs gallops or rubs - normal S1, normal S2 Pulses: 2(+) throughout Abdomen: abdomen soft, non-tender, no abnormal masses and no hepatosplenomegaly Musculoskeletal: no gait disturbance, no joint inflammation, no deforming arthritis Extremities: no edema and no cyanosis Neuro: grossly normal exam Results & Data ([facility]) Vital Signs (Past 12 Hours) Vital Signs Pulse Pulse Resp BP Pulse Ox Pulse Ox 12/05/21 04:32 90 12/05/21 01:29 80 16 168/94 H 94 12/05/21 00:00 79 18 152/95 H 97 97 12/04/21 22:45 78 16 155/68 H 94 12/04/21 22:15 84 16 134/99 94 12/04/21 21:13 82 16 150/73 H 94 Laboratory Results 12/05/21 12/05/21 12/05/21 Range/Units 08:42 05:07 05:02 WBC (4.8-10.8) K/uL RBC (4.2-5.4) M/uL Hgb (12.0-16.0) g/dL Hct (37-47) % MCV (80-100) fL MCH (25-34) pg MCHC (32-36) g/dL RDW Std Deviation (36.4-46.3) fL RDW Coeff of Isaak (11.5-14.5) % Plt Count (130-400) K/uL MPV (7.4-10.4) fL Immature Gran % (Auto) % Neut % (Auto) % Lymph % (Auto) % Knox % (Auto) % Eos % (Auto) % Baso % (Auto) % Neut # (Auto) (1.4-6.5) K/uL Lymph # (Auto) (1.2-3.4) K/uL Knox # (Auto) (0.11-0.59) K/uL Eos # (Auto) (0-0.5) K/uL Baso # (Auto) (0-0.2) K/uL Immature Gran # (Auto) (0.00-0.02) K/uL APTT 48.9 H* (21.0-31.0) Seconds PTT Ratio 1.9 Sodium (136-145) mmol/L Potassium (3.5-5.1) mmol/L Chloride (98-107) mmol/L Carbon Dioxide (21-32) mmol/L Anion Gap (3-11) BUN (6-23) mg/dl Creatinine (0.6-1.2) mg/dl Est Cr Clr Drug Dosing ml/min Est GFR ( Amer) ml/min Est GFR (Non-Af Amer) ml/min BUN/Creatinine Ratio (10-20) Glucose (70-99(Fasting)) mg/dl POC Glucose 129 H 130 H (70-99) mg/dl Estimat Average Glucose Hemoglobin A1c Calcium (8.5-10.1) mg/dl Magnesium (1.7-2.4) mg/dl Troponin I (0-0.04) ng/ml TSH (0.300-4.500) uIu/ml Free T4 (0.61-1.60) ng/dl 12/05/21 12/05/21 12/05/21 Range/Units 04:19 04:19 04:19 WBC (4.8-10.8) K/uL RBC (4.2-5.4) M/uL Hgb (12.0-16.0) g/dL Hct (37-47) % MCV (80-100) fL MCH (25-34) pg MCHC (32-36) g/dL RDW Std Deviation (36.4-46.3) fL RDW Coeff of Isaak (11.5-14.5) % Plt Count (130-400) K/uL MPV (7.4-10.4) fL Immature Gran % (Auto) % Neut % (Auto) % Lymph % (Auto) % Knox % (Auto) % Eos % (Auto) % Baso % (Auto) % Neut # (Auto) (1.4-6.5) K/uL Lymph # (Auto) (1.2-3.4) K/uL Knox # (Auto) (0.11-0.59) K/uL Eos # (Auto) (0-0.5) K/uL Baso # (Auto) (0-0.2) K/uL Immature Gran # (Auto) (0.00-0.02) K/uL APTT (21.0-31.0) Seconds PTT Ratio Sodium 134 L (136-145) mmol/L Potassium 3.9 (3.5-5.1) mmol/L Chloride 100 (98-107) mmol/L Carbon Dioxide 26 (21-32) mmol/L Anion Gap 8 (3-11) BUN 11 (6-23) mg/dl Creatinine 0.55 L (0.6-1.2) mg/dl Est Cr Clr Drug Dosing 63.1 ml/min Est GFR ( Amer) 97.7 ml/min Est GFR (Non-Af Amer) 84.3 ml/min BUN/Creatinine Ratio 20.0 (10-20) Glucose 119 H (70-99(Fasting)) mg/dl POC Glucose (70-99) mg/dl Estimat Average Glucose Pending Hemoglobin A1c Pending Calcium 9.0 (8.5-10.1) mg/dl Magnesium 1.4 L (1.7-2.4) mg/dl Troponin I (0-0.04) ng/ml TSH 4.599 H (0.300-4.500) uIu/ml Free T4 1.09 (0.61-1.60) ng/dl 12/05/21 12/04/21 12/04/21 Range/Units 04:19 22:34 21:09 WBC 4.65 L (4.8-10.8) K/uL RBC 4.28 (4.2-5.4) M/uL Hgb 12.6 (12.0-16.0) g/dL Hct 36.7 L (37-47) % MCV 85.7 (80-100) fL MCH 29.4 (25-34) pg MCHC 34.3 (32-36) g/dL RDW Std Deviation 42.0 (36.4-46.3) fL RDW Coeff of Isaak 13.3 (11.5-14.5) % Plt Count 243 (130-400) K/uL MPV 9.3 (7.4-10.4) fL Immature Gran % (Auto) 0.0 % Neut % (Auto) 53.6 % Lymph % (Auto) 32.5 % Knox % (Auto) 8.6 % Eos % (Auto) 4.7 % Baso % (Auto) 0.6 % Neut # (Auto) 2.49 (1.4-6.5) K/uL Lymph # (Auto) 1.51 (1.2-3.4) K/uL Knox # (Auto) 0.40 (0.11-0.59) K/uL Eos # (Auto) 0.22 (0-0.5) K/uL Baso # (Auto) 0.03 (0-0.2) K/uL Immature Gran # (Auto) 0.00 (0.00-0.02) K/uL APTT 51.8 H* (21.0-31.0) Seconds PTT Ratio 2.0 Sodium (136-145) mmol/L Potassium (3.5-5.1) mmol/L Chloride (98-107) mmol/L Carbon Dioxide (21-32) mmol/L Anion Gap (3-11) BUN (6-23) mg/dl Creatinine (0.6-1.2) mg/dl Est Cr Clr Drug Dosing ml/min Est GFR ( Amer) ml/min Est GFR (Non-Af Amer) ml/min BUN/Creatinine Ratio (10-20) Glucose (70-99(Fasting)) mg/dl POC Glucose 123 H (70-99) mg/dl Estimat Average Glucose Hemoglobin A1c Calcium (8.5-10.1) mg/dl Magnesium (1.7-2.4) mg/dl Troponin I (0-0.04) ng/ml TSH (0.300-4.500) uIu/ml Free T4 (0.61-1.60) ng/dl 12/04/21 12/04/21 12/04/21 Range/Units 17:49 15:54 12:45 WBC (4.8-10.8) K/uL RBC (4.2-5.4) M/uL Hgb (12.0-16.0) g/dL Hct (37-47) % MCV (80-100) fL MCH (25-34) pg MCHC (32-36) g/dL RDW Std Deviation (36.4-46.3) fL RDW Coeff of Isaak (11.5-14.5) % Plt Count (130-400) K/uL MPV (7.4-10.4) fL Immature Gran % (Auto) % Neut % (Auto) % Lymph % (Auto) % Knox % (Auto) % Eos % (Auto) % Baso % (Auto) % Neut # (Auto) (1.4-6.5) K/uL Lymph # (Auto) (1.2-3.4) K/uL Knox # (Auto) (0.11-0.59) K/uL Eos # (Auto) (0-0.5) K/uL Baso # (Auto) (0-0.2) K/uL Immature Gran # (Auto) (0.00-0.02) K/uL APTT 35.0 H (21.0-31.0) Seconds PTT Ratio 1.3 Sodium (136-145) mmol/L Potassium (3.5-5.1) mmol/L Chloride (98-107) mmol/L Carbon Dioxide (21-32) mmol/L Anion Gap (3-11) BUN (6-23) mg/dl Creatinine (0.6-1.2) mg/dl Est Cr Clr Drug Dosing ml/min Est GFR ( Amer) ml/min Est GFR (Non-Af Amer) ml/min BUN/Creatinine Ratio (10-20) Glucose (70-99(Fasting)) mg/dl POC Glucose 94 (70-99) mg/dl Estimat Average Glucose Hemoglobin A1c Calcium (8.5-10.1) mg/dl Magnesium (1.7-2.4) mg/dl Troponin I < 0.03 (0-0.04) ng/ml TSH (0.300-4.500) uIu/ml Free T4 (0.61-1.60) ng/dl 12/04/21 Range/Units 12:14 WBC (4.8-10.8) K/uL RBC (4.2-5.4) M/uL Hgb (12.0-16.0) g/dL Hct (37-47) % MCV (80-100) fL MCH (25-34) pg MCHC (32-36) g/dL RDW Std Deviation (36.4-46.3) fL RDW Coeff of Isaak (11.5-14.5) % Plt Count (130-400) K/uL MPV (7.4-10.4) fL Immature Gran % (Auto) % Neut % (Auto) % Lymph % (Auto) % Knox % (Auto) % Eos % (Auto) % Baso % (Auto) % Neut # (Auto) (1.4-6.5) K/uL Lymph # (Auto) (1.2-3.4) K/uL Knox # (Auto) (0.11-0.59) K/uL Eos # (Auto) (0-0.5) K/uL Baso # (Auto) (0-0.2) K/uL Immature Gran # (Auto) (0.00-0.02) K/uL APTT (21.0-31.0) Seconds PTT Ratio Sodium (136-145) mmol/L Potassium (3.5-5.1) mmol/L Chloride (98-107) mmol/L Carbon Dioxide (21-32) mmol/L Anion Gap (3-11) BUN (6-23) mg/dl Creatinine (0.6-1.2) mg/dl Est Cr Clr Drug Dosing ml/min Est GFR ( Amer) ml/min Est GFR (Non-Af Amer) ml/min BUN/Creatinine Ratio (10-20) Glucose (70-99(Fasting)) mg/dl POC Glucose 215 H (70-99) mg/dl Estimat Average Glucose Hemoglobin A1c Calcium (8.5-10.1) mg/dl Magnesium (1.7-2.4) mg/dl Troponin I (0-0.04) ng/ml TSH (0.300-4.500) uIu/ml Free T4 (0.61-1.60) ng/dl Diagnostic Findings Echo 12/04/2021 Pending
[2021-12-05] MEDS: ASPIRIN 81 MG ECTAB PO SCH (08:47)
[2021-12-05] MEDS: CALCIUM 600MG + VIT D 400 IU TAB PO SCH (08:47)
[2021-12-05] MEDS: ATORVASTATIN 40 MG TAB PO SCH (08:47)
[2021-12-05] MEDS: METOPROLOL TARTRATE 50 MG TAB PO SCH ×2 (08:48→20:47)
[2021-12-05] MEDS: CEROVITE ADV FORMULA TAB PO SCH (08:48)
[2021-12-05] MEDS: CLOPIDOGREL BISULFATE 75 MG TAB PO SCH (08:48)
[2021-12-05] MEDS: VALSARTAN/SACUBITRIL 26/24MG TAB PO SCH ×2 (08:49→20:46)
[2021-12-05] MEDS: MAGNESIUM SULFATE / D5W 1 GM/100 ML BAG IV SCH ×2 (09:31→10:51)
[2021-12-05] MEDS: MAGNESIUM CHLORIDE 64MG DELAYED REL TAB PO SCH (10:50)
[2021-12-05 12:41] LABS: Estimated Average Glucose 140 mg/dl; Hemoglobin A1C 6.5 % (4.5-5.6)
--- NOTE | 2021-12-05 17:22 | Hospitalist Progress Note ---
Date of Service December 05, 2021 Assessment & Plan (1) Atrial fibrillation, new onset: Plan: Patient is an 85 yr female presents with funny feeling at home and found to have new onset atrial fibrillation. New onset atrial fibrillation -ECHO: Moderate concentric LVH. EF 60 to 65%. Aortic valve sclerosis mild, left ventricle systolic function is normal. Right ventricle systolic function is normal. Left atrium is moderately dilated. Right atrium is moderately dilated. Mild mitral regurgitation. TSH:4.5 Coreg discontinued Continue metoprolol 50 mg twice daily Continue IV heparin for now Likely not a candidate for long-term anticoagulation Appreciate cardiology input IV Lopressor PRN PT/OT H/O Chronic systolic congestive heart failure Monitor volume status Continue Entresto Hyperlipidemia: Continue statin. CAD S/P stent on aspirin, statin, and beta clotilde, Plavix DM II Hold metformin and Tradjenta HbA1C:6.5 Insulin sliding scale Monitor BGs Hypothyroidism: Continue levothyroxine TSH near normal GERD Continue Protonix DVT Px: IV heparin. CODE STATUS Full code Admission and Anticipated Discharge Date Admission Date: December 04, 2021 Subjective Patient is seen and examined at bedside States mild back pain which she attributes to prior back surgery No other complaints On IV Heparin Denies any chest pain, palpitations, dizziness, nausea, abdominal pain Review of Systems Review of Systems: All systems reviewed & are unremarkable except as noted in Subjective Physical Exam Physical Exam: Physical Exam: Vitals signs as noted above General Appearance:Thin, elderly, no apparent distress Head: normocephalic, Atraumatic Eyes: normal inspection, EOMI Neck: supple, Trachea midline Respiratory/Chest: Normal breath sounds, CTA Cardiovascular: Irregularly irregular, No murmur Abdomen/GI:Soft, Non tender, Bowel sounds present Extremities/Musculoskeletal:normal inspection, no edema Neurologic/Psych:AAOX3, grossly no focal neurological deficits Skin: normal color, warm Results & Data Results & Data ([facility]) Vital Signs (Past 12 Hours) Vital Signs Temp Pulse Resp BP Pulse Ox 12/05/21 17:07 36.7 C 79 18 135/75 96 12/05/21 12:59 36.4 C L 76 20 126/71 95 12/05/21 08:16 36.5 C 89 15 147/83 H 96 Laboratory Results Short CBC 12/05/21 Range/Units 04:19 WBC 4.65 L (4.8-10.8) K/uL Hgb 12.6 (12.0-16.0) g/dL Hct 36.7 L (37-47) % Plt Count 243 (130-400) K/uL [facility] 12/05/21 04:19 Sodium 134 L Potassium 3.9 Chloride 100 Carbon Dioxide 26 BUN 11 Creatinine 0.55 L Glucose 119 H Calcium 9.0
[2021-12-05] MEDS: HEPARIN SODIUM/DEXTROSE 25,000 UNITS/500 ML BAG IV SCH (18:22)
[2021-12-05] MEDS: LATANOPROST 0.005% OP SOLN 2.5 ML BTL OP SCH (21:13)
[2021-12-05] MEDS: ACETAMINOPHEN 325 MG TAB PO PRN (23:30)
[2021-12-06] MEDS: ACETAMINOPHEN 325 MG TAB PO PRN (04:31)
[2021-12-06] MEDS: LEVOTHYROXINE SODIUM 25 MCG TABLET PO SCH (06:12)
[2021-12-06] MEDS: PANTOprazole 40 MG TAB PO SCH (06:12)
[2021-12-06 07:39] LABS: BUN Creatinine Ratio 18.9 (10-20); Calcium 8.6 mg/dl (8.5-10.1); Creatinine Clr Calc Pharmacy 59.1 ml/min; Est GFR (African American) 98.9 ml/min; Est GFR (Non-African American) 85.4 ml/min; Magnesium 1.8 mg/dl (1.7-2.4); Potassium 3.7 mmol/L (3.5-5.1)
--- NOTE | 2021-12-06 07:52 | Cardiology Progress Note ---
Date of Service December 06, 2021 Assessment & Plan (1) Atrial fibrillation, new onset: Plan: Newly Dx afib with RVR- patient asymptomatic. HRs in the 80s-90s. Due to lack of symptoms will attempt medical management/rate control at this time. Echo showing preserved LVEF and moderately dilated RA and LA. Small pericardial effusion noted. 1. Continue Metoprolol tartrate 50 mg BID 2. Recommend discontinuation of Heparin at discharge. Patient a poor candidate for chronic anticoagulation due to age and fall risk. Patient in agreement 3. PT/OT ordered to evaluate for needs. (2) CAD (coronary artery disease): (3) Ischemic cardiomyopathy: (4) HFrEF (heart failure with reduced ejection fraction): Plan: CAD, h/o anterior wall myocardial infarction and received a drug eluting stent within the LAD at [facility], 01/2020. H/o Ischemic cardiomyopathy, HFrEF, NYHA class 3. LVEF remains perserved on recent echo. 1. Patient remains on DAPT with aspirin and plavix- will need to assess the need for continuing DAPT as an outpatient. (5) Hypertension: Plan: Primarily well controlled- no changes to antihypertensives at this time. Plan: Case discussed with Dr. Monk- once patient is evaluated by PT okay to dc from a cardiology standpoint. Admission and Anticipated Discharge Date Admission Date: December 04, 2021 Supervising Physician Co-Signing Physician Notes I have seen and examined the patient. Reviewed the medical record and discussed the case with the AQUATIC LIFE LABORER. I agree with the plan as outlined above. The patient may need physical therapy prior to discharge. Subjective 85 year old with newly dx atrial fibrillation. Asymptomatic- Coreg was dc'd in favor of metoprolol tartrate 50 mg BID. Upon entrance into the room patient was resting comfortably in bed. Asymptomatic with her atrial fibrillation. No chest pain or shortness of breath. No palpitations, dizziness or syncope. Patient has been up and ambulating to the bathroom with assistance. She lives at home alone and independently. Unfortunately she has been much more unsteady on her feet. She did have a fall in September, but did not get hurt. She notes that she needs her rollator to walk. Patient verbalizes fear regarding falls at home. She does not want placement but she is hoping for some at home rehab. Nursing states that she has been moving around well and is very steady at this time. PT has yet to work with her. Echo: LVEF 60-65%, mod LVH, RV function normal, mod dilated LA and RA, mild MR, small pericardial effusion- no tamponade. Tele: Afib 80-90s, she is currently on a heparin gtt. Review of Systems Review of Systems: All systems reviewed & are unremarkable except as noted in HPI & below Physical Exam Physical Exam: General: no acute distress and stated age Head: normocephalic, no masses, lesions, tenderness or abnormalities Eyes: conjunctiva are pink and non-injected, sclera clear Neck: supple, no adenopathy, no bruits, normal jugular venous pulse, no hepatojugular reflux Chest: normal shape and normal respiratory effort Lungs: clear to auscultation and percussion Cardiac Exam: Irregular rhythm, no murmurs gallops or rubs - normal S1, normal S2 Pulses: 2(+) throughout Abdomen: abdomen soft, non-tender, no abnormal masses and no hepatosplenomegaly Musculoskeletal: no gait disturbance, no joint inflammation, no deforming arthritis Extremities: no edema and no cyanosis Neuro: grossly normal exam Results & Data ([facility]) Vital Signs (Past 12 Hours) Vital Signs Temp Pulse Pulse Resp BP BP Pulse Ox 12/06/21 06:42 87 18 166/94 H 90 12/06/21 02:48 98 H 20 157/96 H 93 12/06/21 00:24 36.7 C 90 20 128/89 94 12/06/21 00:23 Pulse Ox 12/06/21 06:42 12/06/21 02:48 12/06/21 00:24 12/06/21 00:23 94
[2021-12-06 08:08] LABS: Partial Thromboplastin Ratio 1.8
[2021-12-06 08:10] LABS: Partial Thromboplastin Time 46.6 Seconds (21.0-31.0)
[2021-12-06] MEDS: ASPIRIN 81 MG ECTAB PO SCH (09:01)
[2021-12-06] MEDS: ATORVASTATIN 40 MG TAB PO SCH (09:01)
[2021-12-06] MEDS: MAGNESIUM CHLORIDE 64MG DELAYED REL TAB PO SCH (09:02)
[2021-12-06] MEDS: CALCIUM 600MG + VIT D 400 IU TAB PO SCH (09:02)
[2021-12-06] MEDS: CEROVITE ADV FORMULA TAB PO SCH (09:02)
[2021-12-06] MEDS: METOPROLOL TARTRATE 50 MG TAB PO SCH (09:02)
[2021-12-06] MEDS: VALSARTAN/SACUBITRIL 26/24MG TAB PO SCH (09:02)
[2021-12-06] MEDS: CLOPIDOGREL BISULFATE 75 MG TAB PO SCH (09:02)
[2021-12-06] MEDS: INSULIN ASPART PER UNIT SC SCH ×2 (09:32→12:58)
--- NOTE | 2021-12-06 16:15 | Hospitalist Progress Note ---
Date of Service December 06, 2021 Assessment & Plan (1) Atrial fibrillation, new onset: Plan: Patient is an 85 yr female presents with funny feeling at home and found to have new onset atrial fibrillation. New onset atrial fibrillation -ECHO: Moderate concentric LVH. EF 60 to 65%. Aortic valve sclerosis mild, left ventricle systolic function is normal. Right ventricle systolic function is normal. Left atrium is moderately dilated. Right atrium is moderately dilated. Mild mitral regurgitation. TSH:4.5 Coreg discontinued Continue metoprolol 50 mg twice daily Continue IV heparin while hospitalized only Not a candidate for long-term anticoagulation Appreciate cardiology input IV Lopressor PRN PT/OT: Recommends Return Home Needs follow-up with cardiology upon discharge H/O Chronic systolic congestive heart failure Monitor volume status Continue Entresto Hyperlipidemia: Continue statin. CAD S/P stent on aspirin, statin, and beta clotilde, Plavix DM II Hold metformin and Tradjenta HbA1C:6.5 Insulin sliding scale Monitor BGs Hypothyroidism: Continue levothyroxine TSH near normal Chronic hyponatremia Sodium levels at baseline Reviewed outpatient labs GERD Continue Protonix DVT Px: IV heparin. CODE STATUS Full code Admission and Anticipated Discharge Date Admission Date: December 04, 2021 Subjective Patient is seen and examined at bedside States feeling well today Offers no new complaints Had been evaluated by physical therapy earlier today Denies any chest pain, shortness of breath, palpitations, dizziness, nausea, abdominal pain Plan to discharge home today Review of Systems Review of Systems: All systems reviewed & are unremarkable except as noted in Subjective Physical Exam Physical Exam: Physical Exam: Vitals signs as noted above General Appearance:Thin, elderly, no apparent distress Head: normocephalic, Atraumatic Eyes: normal inspection, EOMI Neck: supple, Trachea midline Respiratory/Chest: Normal breath sounds, CTA Cardiovascular: Irregularly irregular, No murmur Abdomen/GI:Soft, Non tender, Bowel sounds present Extremities/Musculoskeletal:normal inspection, no edema Neurologic/Psych:AAOX3, grossly no focal neurological deficits Skin: normal color, warm Results & Data Results & Data ([facility]) Vital Signs (Past 12 Hours) Vital Signs Temp Pulse Pulse Resp BP BP Pulse Ox 12/06/21 12:22 36.8 C 75 18 130/75 96 12/06/21 06:42 87 18 166/[address] [facility] 12/06/21 06:40 Sodium 129 L Potassium 3.7 Chloride 96 L Carbon Dioxide 24 BUN 10 Creatinine 0.53 L Glucose 147 H Calcium 8.6
--- NOTE | 2021-12-06 16:33 | Discharge Summary ---
Date of Service December 06, 2021 Admission HPI Per Admitting Provider CHIEF COMPLAINT: Elevated blood pressure, not feeling well. 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 She says her four sons, lives in [place]. Last night after dinner, she felt funny, not feeling well and felt her blood pressure was going high that is the reason she came here and found to be in new onset atrial fibrillation. The patient is currently is hemodynamically stable. Denies any chest pain, no shortness of breath, no nausea, no abdominal pain. Normal bowel and bladder movements. Denies black stools, no hematuria, no headache, vision is okay.Once in the while she has sore throat.Once in a while has cough. Currently, no sore throat. Appetite is okay. Swallows okay. Hemodynamically stable. Admission Exam Per Admitting Provider PHYSICAL EXAMINATION: GENERAL: The patient is old and frail, not in acute distress. VITAL SIGNS: Temperature 36.8, pulse 103, respiratory rate 16, blood pressure 119/98, oxygen 94% on room air. HEENT: Pupils equal, round and reactive to light. Oral mucosa moist. NECK: No JVD. No neck masses. CARDIOVASCULAR: S1 and S2 heard. Regular rate and rhythm. No murmur, no g allop. RESPIRATORY SYSTEM: Normal AP diameter. No accessory muscle use. No wheezing, no crackles. ABDOMEN: Soft, bowel sounds present, nontender, no distention. CENTRAL NERVOUS SYSTEM: Cranial nerves II-XII grossly intact, nonfocal. EXTREMITIES: Trace pedal edema, no erythema seen. Principal Diagnosis Atrial fibrillation Discharge Data Allergies Allergy/AdvReac Type Severity Reaction Status Date / Time oxybutynin Allergy Unknown SEVERE Unverified 12/04/21 07:15 ACID REFLUX tolterodine Allergy Unknown Unknown Verified 12/04/21 07:15 doxazosin AdvReac Intermediate NUMB Verified 12/04/21 07:15 FEELING ropinirole AdvReac Intermediate FELT WEIRD Verified 12/04/21 07:15 ANTICHOLINERGIC Allergy Unknown SEVERE Uncoded 12/04/21 07:15 ACID REFLUX Consultations 12/04/21 03:53 ED Decision to Admit Stat 12/04/21 08:00 Consult Cardiology Routine Ordered Studies 12/03/21 23:22 CT head/brain wo con Urgent 12/04/21 00:53 CT angio chest PE protocol Urgent Hospital Course (1) Atrial fibrillation, new onset: Patient is an 85 yr female presents with funny feeling at home and found to have new onset atrial fibrillation. New onset atrial fibrillation -ECHO: Moderate concentric LVH. EF 60 to 65%. Aortic valve sclerosis mild, left ventricle systolic function is normal. Right ventricle systolic function is normal. Left atrium is moderately dilated. Right atrium is moderately dilated. Mild mitral regurgitation. TSH:4.5 Coreg discontinued Continue metoprolol 50 mg twice daily Continue IV heparin while hospitalized only Not a candidate for long-term anticoagulation. Discussed with patient's family: understand and agrees with current management Appreciate cardiology input IV Lopressor PRN PT/OT: Recommends Return Home Needs follow-up with cardiology upon discharge H/O Chronic systolic congestive heart failure Monitor volume status Continue Entresto Hyperlipidemia: Continue statin. CAD S/P stent on aspirin, statin, and beta clotilde, Plavix DM II Hold metformin and Tradjenta HbA1C:6.5 Insulin sliding scale Monitor BGs Hypothyroidism: Continue levothyroxine TSH near normal Chronic hyponatremia Sodium levels at baseline Reviewed outpatient labs GERD Continue Protonix DVT Px: IV heparin. CODE STATUS Full code Total Time Total Time Spent Total Time Spent (In Minutes): 45 minutes Discharge Plan Discharge Items Patient Disposition: Home - Self-Care Reason For Visit: CARDIAC ASSESSMENT Discharge Diagnosis: Atrial fibrillation Condition on Discharge: Good Activity: Per Instructions section Exercise/Sports: Wait until after follow-up appointment Non-emergency contact: Primary Care Provider and [place] Call non-emergency contact if: you have any medication questions, your symptoms worsen, your pain is concerning for you and you have a fever Follow-up/Referrals: Edgardo Shields MD [Primary Care Provider] - Diet: Carb Consistent or DM2 and Heart Healthy Addtl Attending Provider Instructions: Follow-up with your primary care physician Dr. Gaona in 1 week. 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 Monk in 2 to 3 weeks Seek immediate medical attention if your symptoms reoccur or worsen Please take all medications as instructed on discharge list below. Please call if you have any questions or problems. You can reach a [facility] hospitalist on duty at [facility] 24 hours a day by calling [phone] Pending Studies at Discharge: No Stand-Alone Forms: My [facility], Smoking Cessation Medications and DC Order Prescriptions: New metoprolol tartrate 50 mg Tablet 50 mg PO BID Qty: 60 RF: 1 Continued latanoprost 0.005 % Drops 1 drp OPHTHALMIC (EYE) PM RF: 0 atorvastatin 40 mg Tablet 40 mg PO DAILY RF: 0 clopidogrel [Plavix] 75 mg Tablet 75 mg PO DAILY RF: 0 aspirin 81 mg Tablet,Delayed Release (Dr/Ec) 81 mg PO DAILY RF: 0 levothyroxine 25 mcg tablet 25 mcg PO DAILYBB RF: 0 pantoprazole 40 mg Tablet,Delayed Release (Dr/Ec) 40 mg PO DAILYBB RF: 0 metformin 1,000 mg Tablet 1,000 mg PO BIDM RF: 0 nitroglycerin [Nitrostat] 0.4 mg Tablet, Sublingual 0.4 mg sublingual DIRECTED PRN (Reason: Chest Pain) RF: 0 fluocinonide 0.05 % Solution 1 applic TOPICAL HS PRN (Reason: ITCHY SCALP) RF: 0 polyethylene glycol 3350 [Miralax] 17 gram/dose Powder 17 g PO DAILY PRN (Reason: Constipation) RF: 0 mometasone 0.1 % Cream 1 applic TOPICAL DAILY PRN (Reason: Skin Irritation) RF: 0 Centrum Silver 0.4-300-250 mg-mcg-mcg Tablet 1 tab PO DAILY RF: 0 calcium carbonate-vitamin D3 [Os-Aaron 500 + D3] 500 mg-5 mcg (200 unit) Tablet 1 tab PO DAILY RF: 0 magnesium chloride 64 mg Tablet,Delayed Release (Dr/Ec) 128 mg PO DAILY RF: 0 PreserVision AREDS 7,160 unit- 113 mg-100 unit Tablet 1 tab PO DAILY RF: 0 Tradjenta 5 mg Tablet 5 mg PO DAILY RF: 0 Entresto 24-26 mg tablet 1 tab PO AMHS RF: 0 Discontinued carvedilol 6.25 mg tablet 6.25 mg PO BID RF: 0 Discharge Orders: Discharge Order (Routine); Ordered 12/06/21 Ordered By: Alonzo Figueroa/Other Patient Handouts: Managing Type 2 Diabetes Admission Data Admit Date/Time: 12/04/21 05:14 Attending Provider: Alonzo Francis Admit Provider: Ellis Saxena Primary Care Provider: Edgardo Shields Other Providers: Ellis Saxena ; Farshad Monk
--- NOTE | 2021-12-06 23:51 | Electrocardiogram Report ---
Test Reason : Blood Pressure : / mmHG Vent. Rate : 090 BPM Atrial Rate : 117 BPM P-R Int : 000 ms QRS Dur : 078 ms QT Int : 364 ms P-R-T Axes : 000 -03 070 degrees QTc Int : 445 ms Poor data quality, interpretation may be adversely affected Atrial fibrillation Septal infarct (cited on or before 28-MAR-2003) Abnormal ECG When compared with ECG of 04-DEC-2021 07:13, Questionable change in QRS axis Confirmed by Chevy Fine ([id number]) on 12/06/2021 11:51:10 PM Referred By: REFERRED SELF Confirmed By:Chevy Fine
== END 2021-12-06 17:04 | disposition home or self-care (01) | DRG 309 ==
LOC: ED 22:57 → EDINP 12-04 05:14 → MERGE 12-04 05:14 → EDINP 12-04 06:22
DX: E87.1 Hypo-osmolality and hyponatremia; Z88.8 Allergy status to other drugs, medicaments and biological substances; Z79.82 Long term (current) use of aspirin; I25.10 Atherosclerotic heart disease of native coronary artery without angina pectoris; H35.30 Unspecified macular degeneration; I25.2 Old myocardial infarction; Z95.5 Presence of coronary angioplasty implant and graft; I11.0 Hypertensive heart disease with heart failure; K21.9 Gastro-esophageal reflux disease without esophagitis; I25.5 Ischemic cardiomyopathy; Z79.899 Other long term (current) drug therapy; E78.5 Hyperlipidemia, unspecified; K58.9 Irritable bowel syndrome, unspecified; I48.91 Unspecified atrial fibrillation; Z79.84 Long term (current) use of oral hypoglycemic drugs; E03.9 Hypothyroidism, unspecified; E11.9 Type 2 diabetes mellitus without complications; Z98.1 Arthrodesis status; I50.22 Chronic systolic (congestive) heart failure; H40.1190 Primary open-angle glaucoma, unspecified eye, stage unspecified